=== PATIENT | male | born 1980 ===

== ENCOUNTER → 2023-04-10 | Outpatient (CLI) | payer OTHER | LOC: LAB 09:25 → LAB SHORT 09:25 | DX: R30.0 Dysuria (principal) | CPT/HCPCS: 87086 ==

== ENCOUNTER → 2023-08-27 | Outpatient (CLI) | payer OTHER | LOC: LAB 16:30 → LAB SHORT 16:30 | DX: B35.1 Tinea unguium (principal) | CPT/HCPCS: 87220 ==